=== PATIENT | male | born 1980 | race Caucasian/White ===

== ENCOUNTER 2020-10-09 17:11 | Emergency (ER) | payer MEDICARE, MEDICAID ==
[~2020-10-09] VITALS: Ht 177.8 cm; Wt 102.3 kg
[~2020-10-09 17:11] MED LIST: CARV-50 PO; CYCL-1 PO; GABA600T13 PO; HUM7525 SQ; INSU100I31 SQ; LINA5TAB4 PO; LISI40TA13 PO
[2020-10-09] MEDS ORDERED: normal saline 1000ML IV soln IV ONE (20:20)
[2020-10-09] MEDS ORDERED: morphine 4 MG/ML inj SYRINge IV ONE (20:20)
[2020-10-09] MEDS ORDERED: oxyCODONE/APAP 10/325mg tablet PO ONE (20:45)
[2020-10-09 21:17] LABS: BASOPHILS # (AUTO) 0.1 X10'3 (0-0.2); BASOPHILS % (AUTO) 0.5 % (0-1); EOSINOPHILS # (AUTO) 0.3 X10'3 (0-0.9); EOSINOPHILS % (AUTO) 2.3 % (0-6); HEMATOCRIT 34.4 % (42.0-52.0); HEMOGLOBIN 11.6 g/dl (14.0-17.9); LYMPHOCYTES # (AUTO) 2.1 X10'3 (1.1-4.8); LYMPHOCYTES % (AUTO) 18.8 % (21-51); MEAN CORPUSCULAR HEMOGLOBIN 28.3 PG (27.0-31.0); MEAN CORPUSCULAR HGB CONC 33.8 g/dL (33.0-36.5); MEAN CORPUSCULAR VOLUME 83.7 FL (78-98); MEAN PLATELET VOLUME 9.6 FL (7.4-10.4); MONOCYTES # (AUTO) 0.9 X10'3 (0-0.9); MONOCYTES % (AUTO) 7.6 % (2-12); NEUTROPHILS # (AUTO) 7.9 X10'3 (1.8-7.7); NEUTROPHILS % (AUTO) 70.8 % (42-75); PLATELET COUNT 405 X10'3 (140-440); RED BLOOD COUNT 4.11 X10'6 (4.70-6.10); RED CELL DISTRIBUTION WIDTH 14.6 % (11.5-14.5); WHITE BLOOD COUNT 11.2 X10'3 (4.5-11.0)
[2020-10-09 21:25] LABS: ALANINE AMINOTRANSFERASE 28 U/L (12-78); ALBUMIN 1.8 G/DL (3.4-5.0); ALBUMIN/GLOBULIN RATIO 0.3 (1.1-1.5); ALKALINE PHOSPHATASE 144 IU/L (46-116); ANION GAP 14 (8-16); ASPARTATE AMINO TRANSFERASE 30 U/L (10-37); BILIRUBIN,TOTAL 0.3 MG/DL (0.1-1.0); BLOOD UREA NITROGEN 25 MG/DL (7-18); BUN/CREATININE RATIO 13.3 (5.4-32.0); CALCIUM 8.9 MG/DL (8.5-10.1); CHLORIDE 100 MMOL/L (99-107); CREATININE 1.88 MG/DL (0.60-1.10); GLUCOSE 152 MG/DL (70-104); POTASSIUM 3.8 MMOL/L (3.5-5.1); SODIUM 137 MMOL/L (135-145); TOTAL CARBON DIOXIDE 22.7 MMOL/L (24-32); TOTAL PROTEIN 8.3 G/DL (6.4-8.2); eGFR 40 ML/MIN
[2020-10-09] MEDS ORDERED: CefTRIAXone 2gm/D5W 50ml BAG 50 ML IV ONE (21:40)
[2020-10-09 23:25] VITALS: BP 161/97
== END 2020-10-09 23:26 | disposition home or self-care (01) ==
LOC: ER 17:12
DX: Z48.89 Encounter for other specified surgical aftercare (principal); L60.8 Other nail disorders; M79.671 Pain in right foot; I10 Essential (primary) hypertension; K21.9 Gastro-esophageal reflux disease without esophagitis; Z88.8 Allergy status to other drugs, medicaments and biological substances; Z79.4 Long term (current) use of insulin; Z79.899 Other long term (current) drug therapy
CPT/HCPCS: 36415; 73630; 80053; 84145; 85025; 93926; 93971; 96361; 96365; 96375; 99285; J0696; J2270; J7030

== ENCOUNTER 2020-10-17 14:46 | Emergency (ER) | payer MEDICARE, MEDICAID ==
[~2020-10-17] VITALS: Ht 177.8 cm; Wt 100.0 kg
[2020-10-17 14:50] VITALS: BP 145/91
== END 2020-10-17 15:40 | disposition home or self-care (01) ==
LOC: ER 14:47
DX: S91.101A Unspecified open wound of right great toe without damage to nail, initial encounter (principal); L60.8 Other nail disorders; I10 Essential (primary) hypertension; K21.9 Gastro-esophageal reflux disease without esophagitis; Z88.8 Allergy status to other drugs, medicaments and biological substances; Z79.4 Long term (current) use of insulin; Z79.899 Other long term (current) drug therapy; X58.XXXA Exposure to other specified factors, initial encounter; Y93.89 Activity, other specified; Y92.89 Other specified places as the place of occurrence of the external cause; Y99.8 Other external cause status
CPT/HCPCS: 99281

== ENCOUNTER 2025-04-09 11:11 | Day surgery (SDC) | payer MEDICARE, MEDICAID ==
[2025-04-05 12:24] LABS: MEAN PLATELET VOLUME 10.8 FL (7.4-10.4); RED CELL DISTRIBUTION WIDTH 19.7 % (11.5-14.5)
[2025-04-05 12:31] LABS: APTT 26 SECONDS (22-32); INR 1.1 INR
[2025-04-05 12:33] LABS: CHOL/HDL RATIO 4.3 (0.00-4.99); CREATININE 2.17 MG/DL (0.60-1.10); LDL CHOLESTEROL 92 MG/DL (50-100); eGFR 33 ML/MIN
[2025-04-05 12:44] LABS: PLATELET ESTIMATE DECREASED
[2025-04-05 13:02] LABS: TOTAL CARBON DIOXIDE 41.6 MMOL/L (24-32)
[2025-04-09] VITALS (9 sets, daily range): BP systolic 133–211; BP diastolic 77–106; PULSE 70–83; RESP 9–18; TEMP 97.9; O2SAT 94–98
[~2025-04-09] VITALS: Ht 177.8 cm; Wt 90.0 kg
[~2025-04-09 11:11] MED LIST changes: +ASPI-1397 PO; +CALC667T6 PO; -CYCL-1 PO; +DILT240C47 PO; +FOLI1TAB35 PO; +FURO80TA3 PO; -GABA600T13 PO; -HUM7525 SQ; -INSU100I31 SQ; -LINA5TAB4 PO; -LISI40TA13 PO; +LYR25C PO; +NOVRI SQ; +OXYC1TAB17 PO; +PRAS10TA10 PO; +SENN-360 PO; +VALS40TA2 PO
--- NOTE | 2025-04-09 11:52 | ELECTROCARDIOGRAPH REPORT ---
[facility] Test Date: 2025-04-09 Test Time: 11:49:59 Pat Name: MARQUES SU Department: [facility] Patient ID: [id number] Room: Gender: M [employer]er: CONNIE : 1980 Requested By: ALAN JOSEPH Order Number: [id number] Reading MD: Dr. JODI Villanueva Measurements Intervals [place] Rate: 82 P: 54 SC: 212 QRS: 16 QRSD: 106 T: 52 QT: 414 QTc: 484 Interpretive Statements Sinus rhythm Prolonged SC interval Probable left atrial enlargement Borderline prolonged QT interval Electronically Signed On 04-09-2025 18:49:[address] JODI Villanueva Please click the below link to view image of tracing.
[2025-04-09] MEDS ORDERED: VIT1TABL50 PO (12:04)
[2025-04-09] MEDS ORDERED: SODI10PO PO (12:04)
[2025-04-09] MEDS ORDERED: auryxia PO (12:04)
[2025-04-09] MEDS ORDERED: TAMS-55 PO (12:04)
[2025-04-09] MEDS ORDERED: fentaNYL/PF 50MCG/1 ML 2ML syringe ONE (13:19)
[2025-04-09] MEDS ORDERED: midazolam 1 mg/ML 2ml injection ONE (13:19)
[2025-04-09] MEDS ORDERED: heparin 1,000unit/ml 10ml vial 0 ML ONE (13:19)
[2025-04-09] MEDS ORDERED: LIDOcaine 1% 30ml preserv. free vial ONE (13:19)
[2025-04-09] MEDS ORDERED: hydrALAZINE 20mg/ml inj. ONE (14:01)
[2025-04-09] MEDS ORDERED: OXAZEpam 15mg capsule PO PRN (14:50)
[2025-04-09] MEDS ORDERED: ondansetron/PF 4mg/2ml inj IV PRN (14:50)
--- NOTE | 2025-05-05 08:44 | CARDIOLOGY REPORT ---
DATE OF SERVICE: 04/09/2025 DICTATING PHYSICIAN: Tate Peace MD CARDIAC CATHETERIZATION REPORT DATE OF STUDY: 04/09/2025 PROCEDURES: * Left heart catheterization * Selective coronary angiography * Left ventriculography * Conscious sedation monitoring time for 15 minutes. INDICATION: Prerenal transplant. PHYSICIAN: Jimmy Peace MD DESCRIPTION OF PROCEDURE: After informed consent was obtained, the patient was brought to the lab where he was prepped and draped in the usual sterile fashion. A 6F sheath was inserted into the right femoral artery. Next, using a JL4 followed by a JR4 catheter, selective coronary angiography was performed. Following coronary angiography, pigtail catheter was advanced into the left ventricle and left ventriculography performed. HEMODYNAMICS: For the patient's hemodynamics, please refer to the event log. Left ventricular end diastolic pressure was 16 mmHg. FINDINGS: The left main coronary artery is a medium caliber vessel free of significant disease. The left anterior descending coronary artery is also a medium caliber vessel with a 20% proximal stenosis. 40-50% mid and distal LAD stenosis is noted. The diagonal branch of the LAD is a small caliber vessel that is also diffusely diseased with 50% stenosis. The circumflex coronary artery is a medium caliber vessel with 20% proximal and mid vessel stenosis. The right coronary artery is a large dominant vessel with a 30-40% mid vessel stenosis. Left ventriculography revealed the presence of normal left ventricular function. IMPRESSION: * Mild to moderate coronary artery disease. * Normal left ventricular function. * Left ventricular end diastolic pressure is 16 mmHg. Tate Peace MD TID: [id number] RECEIPT: [id number] JAE/CHAZ
== END 2025-04-09 17:00 | disposition home or self-care (01) ==
LOC: SSTAY O 11:11
PROVIDERS: ATTEND Student in an Organized Health Care Education/Training Program
DX: I13.0 Hypertensive heart and chronic kidney disease with heart failure and stage 1 through stage 4 chronic kidney disease, or unspecified chronic kidney disease (principal); E11.22 Type 2 diabetes mellitus with diabetic chronic kidney disease; I50.9 Heart failure, unspecified; N18.4 Chronic kidney disease, stage 4 (severe); I25.10 Atherosclerotic heart disease of native coronary artery without angina pectoris; Z79.4 Long term (current) use of insulin; Z88.8 Allergy status to other drugs, medicaments and biological substances; Z79.82 Long term (current) use of aspirin; Z79.899 Other long term (current) drug therapy
CPT/HCPCS: 36415; 80048; 80061; 82948; 85025; 85610; 85730; 93005; 93458; 99152; A6258; J0360; J1644; J2003; J2250; J3010; J7030; Q0163; Q9967; Z7610; 85008; 99153